=== PATIENT | female | born 1960 | race Caucasian/White ===

== ENCOUNTER → 2019-04-30 | Outpatient (CLI) | payer BC | LOC: GMA MATASK 10:21 | PROVIDERS: ATTEND Family Medicine | DX: E03.9 Hypothyroidism, unspecified (principal) ==

== ENCOUNTER → 2019-08-10 | Outpatient (CLI) | payer BC ==
--- NOTE | 2019-08-10 17:01 | MAM ---
EXAM DESCRIPTION: 3D Diagnostic, Bilateral (accession [id number]), Breast,Left (accession [id number]): Ultrasound CLINICAL HISTORY: 59 yearsFemaleMASTODYNIA OF BILATERAL BREASTS . 2 regions of focal asymmetry in the left breast. No personal history of breast cancer. Mother with breast cancer age 76. Daughter with breast cancer age 29. Remote family history of breast cancer. Menarche age 10. Childbirth age 19. Menopause age hysterectomy at 37. Currently on HRT. Lifetime risk of developing breast cancer (Tyrer-Cuzick model)(%): 26.0. COMPARISON: Bilateral screening digital breast tomosynthesis April 30. TECHNIQUE: Bilateral LM projection full-field images, digital tomosynthesis technique. Bilateral 2-D digital full-field images: LM projections. CAD available for 2-D images.. Transcutaneous scanning of the left breast utilizing fields-scale and Doppler modes. Scanning performed by the vaccine customer representative ; observation by Dr. Armstrong. FINDINGS: The breast parenchymal density pattern is: Heterogeneously dense breast tissue, which may obscure small masses. No skin thickening or nipple retraction left axillary lymph node. Focal asymmetry in the upper outer quadrant of the middle third and posterior third of left breast and axilla not well seen on current study. No suspicious microcalcifications and no dominant mass. No new focal, stellate mass or density, focal asymmetry , and no suspicious microcalcifications right breast. Ultrasound: Scanning upper-outer quadrant left breast regions of interest. Mixture of fibroglandular and fatty echotexture. Emphasis on the left breast 8 cm from the nipple at 3:00. No dominant solid mass, no distinct cyst, no fluid collection, no large calcifications. No overlying skin changes. Scanning of the left breast 10 cm from the nipple at 2:00. Negative findings. IMPRESSION: Benign exam. BIRAD CATEGORY: 2 BENIGN FINDINGS. RECOMMENDATIONS: FOLLOW UP: Return to routine. digital bilateral mammographic screening, one year interval from March 2019. Written communication explaining the IMPRESSION and follow-up, will be mailed to the patient and referring health care provider. The FINDINGS and the FOLLOW-UP plan were reviewed in person with the patient after the examination. According to the [employer], yearly mammograms are recommended starting at age 40 and continuing as long as a woman is in good health. Any breast change noted on a breast self-exam should be reported promptly to the patient's healthcare provider. Breast MRI is recommended for women with an approximately 20-25% or greater lifetime risk of breast cancer, including women with a strong family history of breast or ovarian cancer and women who have been treated for Hodgkin's disease. A negative mammographic report should not delay tissue diagnosis in patients with significant clinical history or physical findings. Extremely dense breast tissue limits the sensitivity of digital mammography. Electronically signed by: Will Armstrong MD 08/10/2019 4:59 PM CDT
== END ==
LOC: MAMMO 09:05
PROVIDERS: ATTEND Physician Assistant Medical
DX: N64.4 Mastodynia (principal)
CPT/HCPCS: 76641; 77066; G0279